=== PATIENT | male | born 1945 | race Caucasian/White ===

== ENCOUNTER → 2016-07-25 | Day surgery (SDC) | payer MEDICARE ==
[~2016-07-25] MED LIST: ATROPINE SULFATE 1% OPHT SOLN 2 ML BTL ONE; DEXAMETHASONE SOD PHOS 4 MG/ML VIAL ONE; EPINEPHrine HCL (1:1000) 1 MG/ML VIAL ONE; FLURBIPROFEN 0.03% OPHT SOLN 2.5 ML BTL ONE; HYALURONIDASE/LIDOCAINE/BUPIVACAINE 11 ML SYR TL ONE; LACTATED RINGER'S 1000 ML INJ 1,000 ML ONE; NEOMYCIN/POLYMYXIN/DEXAMETHASONE OPTH OINT 3.5 GM TUBE ONE; PHENYLEPHRINE HCL 2.5% OPTH SOLN 2 ML BTL ONE; PROPOFOL 200 MG/20 ML AMP IV ONE; SODIUM CHLORIDE 0.9% INJ 10 ML ONE; TETRACAINE 0.5% OPTH SOLN 4 ML BTL ONE; TROPICAMIDE 1% OPHT SOLN 15 ML BTL ONE; ceFAZolin INJ 1,000 MG VIAL ONE
--- NOTE | 2016-07-29 10:39 | MP ---
cc: PEDRO LUIS ANGELES MD DATE OF SURGERY: 07/25/2016 PREOPERATIVE DIAGNOSIS: Retinal detachment, proliferative vitreoretinopathy, left eye. POSTOPERATIVE DIAGNOSIS: Retinal detachment, proliferative vitreoretinopathy, left eye. OPERATION: Pars plana vitrectomy, membrane peeling, endolaser gas-fluid exchange, left eye. ANESTHESIA: MAC. SURGEON: Pedro Luis Angeles MD. COMPLICATIONS: None. PROCEDURE: After informed consent was obtained, the patient was given retrobulbar anesthesia. He was then prepared and draped in the usual sterile fashion in the operating room. Wire lid speculum was placed in the patient's left eye. 23 gauge vitrectomy cannulas were then placed in the lower temporal, supratemporal and supranasal quadrants 3 millimeters posterior to corneoscleral limbus. An infusion cannula was placed lower temporally. Core vitrectomy was then performed. There was already a posterior vitreous detachment and vitrectomy was carried out as far as possible to the vitreous base. Complete air fluid exchange was then performed through a posterior retinotomy and the retina flattened nicely. Endolaser was used to treat the retinotomy as well as the retinal breaks and the retina at the vitreous base for 360 degrees. The air was then exchanged for 16% C3F8. The three vitrectomy cannulas were then removed. Subconjunctival injections of dexamethasone and Ancef were placed. An atropine drop, Maxitrol ointment, patch and shield were then applied. The patient tolerated the procedure well. There were no complications. He will remain positioned over the next week. He will follow up tomorrow in our [place] office. ADDENDUM: The patient had some pre-retinal membranes inferiorly creating traction and these were dissected with a pic and intraocular forceps to remove them. They were also trimmed with the vitreous cutter. More extensive lasering was performed inferiorly in these areas. Pedro Luis Angeles MD TAB/LUCILA /9:14 AM /10:29 AM
== END | disposition home or self-care (01) ==
LOC: ESDC 12:53
PROVIDERS: ATTEND Ophthalmology Retina Specialist
DX: H33.42 Traction detachment of retina, left eye (principal)
CPT/HCPCS: 00145; 67043; J0171; J0690; J1100; J7120